=== PATIENT | male | born 1980 | race Caucasian/White ===

== ENCOUNTER 2020-09-26 15:36 | Inpatient (IN) | payer MEDICAID, OTHER ==
[~2020-09-26] VITALS: Ht 175.3 cm; Wt 77.4 kg
[2020-09-26] MEDS ORDERED: LORazepam 2 MG/ML, 1ML IVPush ONE ×3 (16:00→17:00)
[2020-09-26] MEDS ORDERED: SODIUM CHLORIDE 0.9% 1,000ML IVBOLUS ONE (16:00)
[2020-09-26] MEDS ORDERED: LORazepam 2 MG/ML, 1ML ONE ×5 (16:01→21:01)
[2020-09-26 16:26] LABS: BASOPHILS % (AUTO) 0 % (0-1); EOSINOPHILS % (AUTO) 0 % (1-7); LYMPHOCYTES % (AUTO) 4 % (22-44); MEAN CORPUSCULAR HEMOGLOBIN 36.1 pg (27.5-34.5); MEAN CORPUSCULAR HGB CONC 34.7 g/dL (33.2-36.2); MEAN PLATELET VOLUME 8.4 fL (7.4-10.4); MONOCYTES % (AUTO) 17 % (2-9); NEUTROPHILS % (AUTO) 79 % (42-75); PLATELET COUNT 174 x10^3/uL (130-400); RED BLOOD COUNT 3.24 x10^6/uL (4.38-5.82); RED CELL DISTRIBUTION WIDTH 12.5 % (9.4-14.8)
--- NOTE | 2020-09-26 16:45 | NUR ---
FOUND PT OUT OF BED, PIV REMOVED BY PT, BLOOD ALL OVER. PT PLACED BACK INTO BED.MONITOR'S PLACED AND ROOM CLEANED. CHARGE, RN NOTIFIED. PROVIDER UPDATED. MED ORDERS RECEIVED.
--- NOTE | 2020-09-26 16:58 | NUR ---
SITTER AT BEDSIDE. PT MEDICATED PER OCT.
[2020-09-26 17:12] LABS: ALANINE AMINOTRANSFERASE 193 U/L (12-78); ALBUMIN 4.2 g/dL (3.4-5.0); ANION GAP 25 mmol/L (5-15); CALCIUM 8.2 mg/dL (8.5-10.1); CHLORIDE 93 mmol/L (98-107); CREATININE 2.99 mg/dL (0.7-1.3)
[2020-09-26 17:14] LABS: ALKALINE PHOSPHATASE 80 U/L (45-117); BILIRUBIN,TOTAL 2.1 mg/dL (0.2-1.0); TOTAL PROTEIN 8.3 g/dL (6.4-8.2)
[2020-09-26 17:31] LABS: MD SCAN
[2020-09-26 17:49] LABS: AMPHETAMINE SCREEN, URINE Negative (Negative); BARBITURATE SCREEN, URINE Negative (Negative); BENZODIAZEPINE SCREEN, URINE Negative (Negative); CANNABINOID SCREEN, URINE Negative (Negative); COCAINE SCREEN, URINE Negative (Negative); METHADONE SCREEN, URINE Negative (Negative); OPIATE SCREEN, URINE Negative (Negative)
--- NOTE | 2020-09-26 17:52 | NUR ---
PT SLEEPING, SHIVANI BOO.
--- NOTE | 2020-09-26 17:54 | NUR ---
PT AWAKE AGAIN AND PULLING AT LINES. MEDICATED PER OCT.
[2020-09-26] MEDS: LORazepam 2 MG/ML, 1ML IVPush PRN ×4 (17:55→20:00)
[2020-09-26] MEDS ORDERED: PLEASE ENTER ALLERGIES MC SCH (18:00)
[2020-09-26] MEDS ORDERED: SODIUM CHLORIDE 0.9% 1,000 ML IV ONE (18:00)
[2020-09-26] MEDS ORDERED: ONDANSETRON 2MG/ML, 2ML IVPush ONE (18:00)
[2020-09-26] MEDS ORDERED: MAGNESIUM SULFATE 1 GM, THIAMINE 100 MG, FOLIC ACID 1 MG in SODIUM CHLORIDE 0.9% 1,000 ML IV ONE (18:00)
[2020-09-26] MEDS ORDERED: ONDANSETRON 2MG/ML, 2ML ONE (18:06)
[2020-09-26 18:24] LABS: SALICYLATE LEVEL 5.2 mg/dL (2.8-20.0)
[2020-09-26 18:37] LABS: INTERNATIONAL NORMALIZED RATIO 0.99 (0.93-1.1); PROTHROMBIN TIME 10.6 Seconds (9.6-11.5)
[2020-09-26] MEDS ORDERED: LACTATED RINGERS 1,000 ML IV SCH (20:30)
[2020-09-26] MEDS ORDERED: PHARMACY MAY ADJ FOR RENAL FX MC PRN (20:30)
[2020-09-26] MEDS: DIAZEPAM 10 MG TABLET PO SCH ×3 (20:30→23:30)
[2020-09-26] MEDS ORDERED: ACETAMINOPHEN 325 MG TABLET PO PRN (20:30)
[2020-09-26] MEDS ORDERED: ACETAMINOPHEN 650 MG SUPP PR PRN (20:30)
[2020-09-26] MEDS ORDERED: LORazepam 2 MG/ML, 1ML IV PRN ×3 (20:30)
[2020-09-26] MEDS ORDERED: LABETALOL 5MG/ML, 20ML IVPush PRN (21:00)
[2020-09-26] MEDS ORDERED: SODIUM CHLORIDE 0.9%, 500ML IVBOLUS ONE (21:00)
[2020-09-26] MEDS ORDERED: MAGNESIUM CHLORIDE 64 MG TABLET.DR PO SCH (21:00)
[2020-09-26] MEDS ORDERED: SODIUM CHLORIDE 0.9% 1,000 ML IV SCH (21:00)
[2020-09-26] MEDS: LORazepam 2 MG/ML, 1ML IV PRN ×2 (21:10→22:31)
--- NOTE | 2020-09-26 21:11 | NUR ---
REPORT FROM KRISTA CLEMENT. PT VERY AGITATED, TREMORS NOTED, PT URINATED ON GURNEY AND FLOOR. MONITORING REPLACED, PT AND GURNEY CLEANED, MEDICATED PER EMAR.
[2020-09-26] MEDS: HEPARIN 5,000 UNITS/ML, 1ML SQ SCH (22:31)
[2020-09-27] MEDS: LORazepam 2 MG/ML, 1ML IV PRN ×4 (00:07→04:40)
[2020-09-27] MEDS: DIAZEPAM 10 MG TABLET PO SCH ×3 (00:11→03:44)
[2020-09-27 00:57] LABS: ANION GAP 14 mmol/L (5-15); CALCIUM 8.4 mg/dL (8.5-10.1); CHLORIDE 106 mmol/L (98-107); CREATININE 2.03 mg/dL (0.7-1.3)
[2020-09-27] MEDS ORDERED: CALCIUM GLUCONATE 4.6 MEQ in SODIUM CHLORIDE 0.9% 50 ML IV ONE (04:00)
[2020-09-27] MEDS ORDERED: SODIUM ZIRCONIUM CYCLOSILICATE 10 GM PO ONE ×2 (04:00→09:00)
[2020-09-27] MEDS ORDERED: D5%-0.45% NACL 1,000 ML IV SCH (04:00)
[2020-09-27] MEDS: HEPARIN 5,000 UNITS/ML, 1ML SQ SCH ×3 (04:40→21:53)
[2020-09-27 04:47] LABS: BASOPHILS % (AUTO) 0 % (0-1); EOSINOPHILS % (AUTO) 0 % (1-7); LYMPHOCYTES % (AUTO) 13 % (22-44); MEAN CORPUSCULAR HEMOGLOBIN 36.6 pg (27.5-34.5); MEAN PLATELET VOLUME 8.1 fL (7.4-10.4); MONOCYTES % (AUTO) 21 % (2-9); NEUTROPHILS % (AUTO) 65 % (42-75); PLATELET COUNT 144 x10^3/uL (130-400); RED BLOOD COUNT 2.89 x10^6/uL (4.38-5.82); RED CELL DISTRIBUTION WIDTH 12.2 % (9.4-14.8)
[2020-09-27 04:54] LABS: ANION GAP 15 mmol/L (5-15); CALCIUM 7.8 mg/dL (8.5-10.1); CHLORIDE 106 mmol/L (98-107); CREATININE 1.57 mg/dL (0.7-1.3)
[2020-09-27 05:01] LABS: ALBUMIN 3.4 g/dL (3.4-5.0); BILIRUBIN, DIRECT 0.6 mg/dL (0.1-0.2)
[2020-09-27 05:03] LABS: BILIRUBIN,INDIRECT 1.2 mg/dL (0.0-2.0); BILIRUBIN,TOTAL 1.8 mg/dL (0.2-1.0); TOTAL PROTEIN 6.6 g/dL (6.4-8.2)
[2020-09-27 05:32] LABS: MD SCAN
[2020-09-27] MEDS ORDERED: LORazepam 2 MG/ML, 1ML IVPush PRN (07:00)
[2020-09-27] MEDS: MAGNESIUM SULFATE IV SCH (07:48)
[2020-09-27] MEDS: FOLIC ACID IV SCH (07:48)
[2020-09-27] MEDS: THIAMINE IV SCH (07:48)
[2020-09-27] MEDS: D5 IV SCH (07:48)
[2020-09-27] MEDS: NACL IV SCH (07:48)
[2020-09-27 08:09] LABS: MICROSCOPIC AUTO
[2020-09-27] MEDS: MULTIVITAMINS/MINERALS TABLET PO SCH (09:00)
[2020-09-27] MEDS ORDERED: CHLORDIAZEPOXIDE 25 MG CAPSULE ONE (12:53)
[2020-09-27] MEDS: CHLORDIAZEPOXIDE 25 MG CAPSULE PO SCH ×2 (12:57→19:56)
[2020-09-27 14:34] VITALS: BP 123/78
[2020-09-27] MEDS: D5%-0.45% NACL 1,000 ML IV SCH ×2 (16:40→23:53)
[2020-09-27 21:49] VITALS: BP 124/75
[2020-09-27] MEDS ORDERED: DIAZEPAM 10 MG TABLET PO SCH (23:30)
[2020-09-28 00:36] VITALS: BP 138/90
[2020-09-28] MEDS: CHLORDIAZEPOXIDE 25 MG CAPSULE PO SCH ×3 (02:04→14:00)
[2020-09-28] MEDS ORDERED: D5%-0.45% NACL 1,000 ML IV SCH ×2 (04:00→16:00)
[2020-09-28] MEDS: HEPARIN 5,000 UNITS/ML, 1ML SQ SCH ×2 (05:24→13:08)
[2020-09-28] MEDS: D5%-0.45% NACL 1,000 ML IV SCH (05:43)
[2020-09-28 05:59] LABS: BASOPHILS % (AUTO) 1 % (0-1); EOSINOPHILS % (AUTO) 1 % (1-7); LYMPHOCYTES % (AUTO) 23 % (22-44); MEAN CORPUSCULAR HEMOGLOBIN 36.6 pg (27.5-34.5); MEAN CORPUSCULAR HGB CONC 35.6 g/dL (33.2-36.2); MEAN PLATELET VOLUME 7.9 fL (7.4-10.4); MONOCYTES % (AUTO) 22 % (2-9); NEUTROPHILS % (AUTO) 54 % (42-75); PLATELET COUNT 156 x10^3/uL (130-400); RED BLOOD COUNT 2.83 x10^6/uL (4.38-5.82); RED CELL DISTRIBUTION WIDTH 12.3 % (9.4-14.8)
[2020-09-28 06:10] LABS: CHLORIDE 107 mmol/L (98-107)
[2020-09-28 06:11] LABS: MD NO
[2020-09-28 06:32] LABS: ALANINE AMINOTRANSFERASE 111 U/L (12-78); ALKALINE PHOSPHATASE 57 U/L (45-117); ANION GAP 6 mmol/L (5-15); BILIRUBIN,TOTAL 1.1 mg/dL (0.2-1.0); CALCIUM 8.2 mg/dL (8.5-10.1); CREATINE KINASE, TOTAL 3349 U/L (39-308); CREATININE 0.94 mg/dL (0.7-1.3); TOTAL PROTEIN 6.1 g/dL (6.4-8.2)
[2020-09-28 06:44] VITALS: BP 144/91
[2020-09-28] MEDS: MAGNESIUM SULFATE IV SCH (07:52)
[2020-09-28] MEDS: FOLIC ACID IV SCH (07:52)
[2020-09-28] MEDS: D5 IV SCH (07:52)
[2020-09-28] MEDS: THIAMINE IV SCH (07:52)
[2020-09-28] MEDS: NACL IV SCH (07:52)
[2020-09-28] MEDS: MULTIVITAMINS/MINERALS TABLET PO SCH (07:53)
[2020-09-28] MEDS ORDERED: THIAMINE 100 MG in DEXTROSE 5% 50 ML IVPB SCH (09:00)
[2020-09-28] MEDS ORDERED: POTASSIUM CHLORIDE 20 MEQ TAB.ER.PRT PO ONE (10:30)
[2020-09-28 12:39] VITALS: BP 121/69
== END 2020-09-28 15:02 | disposition left against medical advice (07) | DRG 70 ==
LOC: ED 18:27 → EDIP 18:34 → ED 19:18 → CCU 21:27 → 3N 09-27 14:08
PROVIDERS: ADMIT Family Medicine; ATTEND Internal Medicine
DX: G93.41 Metabolic encephalopathy (principal); N17.0 Acute kidney failure with tubular necrosis; E87.1 Hypo-osmolality and hyponatremia; E87.2 Acidosis; F10.231 Alcohol dependence with withdrawal delirium; M62.82 Rhabdomyolysis; K70.10 Alcoholic hepatitis without ascites; D53.9 Nutritional anemia, unspecified; E16.2 Hypoglycemia, unspecified; E86.0 Dehydration; E86.1 Hypovolemia; F17.200 Nicotine dependence, unspecified, uncomplicated; R74.01 Elevation of levels of liver transaminase levels; E87.5 Hyperkalemia
CPT/HCPCS: 36415; J7042; 71045; 80048; 80053; 80074; 80076; 80299; 80307; 80320; 80329; 81001; 82140; 82550; 83690; 83735; 84100; 85025; 85610; 85730; 87081; 93005; G0378; J0610; J1644; J2405; J3411; J3475; G0480; J2060; J7030

== ENCOUNTER 2020-09-28 16:52 | Emergency (ER) | payer SELFPAY ==
[~2020-09-28] VITALS: Ht 180.3 cm; Wt 81.6 kg
--- NOTE | 2020-09-28 17:26 | NUR ---
PT IS A 39M WHO COMES IN THIS AFTERNOON COMPLAINING OF PAIN TO LEFT HAND AND LEFT FOOT. HE STATES IT IS A GOUT FLARE UP. HE IS ALSO DETOXING FROM ETOH. LAST DRINK WAS 4-5 DAYS AGO. PT LEFT THE ICU AMA THIS AFTERNOON BUT STATES HE DID NOT HAVE A DRINK BEFORE COMING BACK. PT IS TREMULOUS BUT RESTING IN BED WITH A WARM BLANKET. CALL LIGHT WITHIN REACH, CONTINUOUS SPO2 AND CYCLING VITALS IN PLACE.
--- NOTE | 2020-09-28 17:55 | NUR ---
PROVIDER AT BEDSIDE FOR EVALUATION.
[2020-09-28] MEDS ORDERED: POTASSIUM CHLORIDE 20 MEQ, MAGNESIUM SULFATE 1 GM, FOLIC ACID 1 MG, THIAMINE 200 MG in ... IV SCH (18:00)
[2020-09-28] MEDS ORDERED: LORazepam 2 MG/ML, 1ML IVPush ONE (18:00)
[2020-09-28] MEDS ORDERED: LORazepam 2 MG/ML, 1ML ONE (18:18)
[2020-09-28 18:29] LABS: ALANINE AMINOTRANSFERASE 112 U/L (12-78); ALBUMIN 3.3 g/dL (3.4-5.0); ANION GAP 5 mmol/L (5-15); CALCIUM 8.3 mg/dL (8.5-10.1); CHLORIDE 106 mmol/L (98-107); CREATININE 0.86 mg/dL (0.7-1.3)
--- NOTE | 2020-09-28 18:29 | NUR ---
PT RESTING COMFORTABLY WITH CALL LIGHT IN REACH. MEDICATED PER EMAR AND ORDERED ADDITIONAL MEDS FROM PHARMACY
[2020-09-28] MEDS ORDERED: MULTIVITAMIN 1 TABLET PO ONE (18:30)
[2020-09-28 18:35] LABS: BASOPHILS % (AUTO) 1 % (0-1); EOSINOPHILS % (AUTO) 0 % (1-7); LYMPHOCYTES % (AUTO) 15 % (22-44); MEAN CORPUSCULAR HEMOGLOBIN 36.2 pg (27.5-34.5); MEAN CORPUSCULAR HGB CONC 35.5 g/dL (33.2-36.2); MEAN PLATELET VOLUME 8.1 fL (7.4-10.4); MONOCYTES % (AUTO) 26 % (2-9); NEUTROPHILS % (AUTO) 59 % (42-75); PLATELET COUNT 176 x10^3/uL (130-400); RED BLOOD COUNT 2.94 x10^6/uL (4.38-5.82); RED CELL DISTRIBUTION WIDTH 11.9 % (9.4-14.8)
[2020-09-28 18:36] LABS: MD NO
[2020-09-28 18:43] LABS: ALKALINE PHOSPHATASE 62 U/L (45-117); BILIRUBIN,TOTAL 0.9 mg/dL (0.2-1.0); CREATINE KINASE, TOTAL 2191 U/L (39-308); TOTAL PROTEIN 6.7 g/dL (6.4-8.2)
--- NOTE | 2020-09-28 18:51 | NUR ---
REPORT TO GUSTABO VELASCO
--- NOTE | 2020-09-28 18:58 | NUR ---
BEDSIDE REPORT FROM MICHELLE RN, PT CARE TRANSFERRED AT THIS TIME. NAD, RESTING ON GURNEY, EYES CLOSED, PT IS HAVING A SLIGHTLY INCREASE OF ACTIVITY AND FIDGETING. OTHERWISE APPEARS COMFORTABLE, BED IN LOWEST, RAILS ENGAGED, CALL LIGHT ON LAP, WAITING FOR MED FROM PHARMACY AND LAB RESULTS, WCTM.
[2020-09-28] MEDS ORDERED: AMPICILLIN/SULBACTAM 3 GM in SODIUM CHLORIDE 0.9% 100 ML IV ONE (19:00)
--- NOTE | 2020-09-28 20:00 | NUR ---
LATE ENTRY D/T PT CARE: PT PROVIDED SANDWICH AND CHIPS AND ADDITIONAL WARM BLANKETS FOR COMFORT, DENIES ADDITIONAL NEEDS AT THIS TIME. NAD, BED IN LOWEST, RAILS ENGAGED, CALL LIGHT ON LAP, WCTM. WAITING FOR FLUIDS TO FINISH.
--- NOTE | 2020-09-28 20:55 | NUR ---
PT RESTING ON GURNEY, UNDER BLANKETS, APPEARS COMFORTABLE, NAD, NO LONGER RESTLESS, BED IN LOWEST, RAILS ENGAGED, CALL LIGHT ON LAP, WCTM. WAITING FOR FLUIDS TO FINISH.
--- NOTE | 2020-09-28 21:49 | NUR ---
PT RESTING ON CARMEN, ESTABLISHED WHERE HE WANTS TO DC TO WITH TAXI VOUCHER, NO CHANGE IN CONDITION, NAD, DISCUSSED IN PATIENT REHAB OPTIONS WITH PT, PT DECLINES WELLCARE AT THIS TIME STATING "I FEEL BETTER, I JUST NEEDED A QUICK BREAK." WCTM. WAITING FOR ELECTROLYTE BAG TO BE COMPLETED.
--- NOTE | 2020-09-28 21:53 | NUR ---
PT STATES "I LEFT MY STUFF WITH SOMEONE, LIKE MY KEYS, WALLET AND PHONE BUT WHEN I LEFT E[facility] TODAY I DIDNT GET IT BACK." THIS RN CONTACTED SECURITY WHO DECLINED HAVING ITEMS. PER E[facility] CHARTING IN EMR RECORDS, PT LEFT WITH ALL PERSONAL BELONGINGS. WCTM.
[2020-09-28 23:08] VITALS: BP 129/88
--- NOTE | 2020-09-28 23:11 | NUR ---
Patient given discharge instructions and they have confirmed that they understand the instructions. Patient ambulatory with steady gait. nad, denies additional questions or needs at this time. no personal belongings left in room after discharge. pt provided taxi voucher.
--- NOTE | 2020-09-28 23:49 | NUR ---
AFTER DC, PT SET BAG OF URINE SOAKED CLOTHING DOWN AND LEFT IN ROOM, DECLINES TAKING BELONGINGS.
== END 2020-09-28 23:10 | disposition home or self-care (01) ==
LOC: ED 19:25
DX: F10.139 Alcohol abuse with withdrawal, unspecified (principal); L03.032 Cellulitis of left toe; R41.0 Disorientation, unspecified; Y90.0 Blood alcohol level of less than 20 mg/100 ml
CPT/HCPCS: 36415; 73140; 73660; 80053; 80320; 82550; 84550; 85025; 96365; 96366; 96368; 96375; 99285; J0295; J2060; J3411; J3475; J3480; J7042; 96361; 96374; G0480

== ENCOUNTER 2020-10-16 16:45 | Emergency (ER) | payer MEDICAID ==
[~2020-10-16] VITALS: Ht 180.3 cm; Wt 84.1 kg
--- NOTE | 2020-10-16 18:17 | NUR ---
CLEAN RICE BROKER: PT AMBULATORY TO ROOM FROM LOBBY
[2020-10-16 18:41] VITALS: BP 132/72
--- NOTE | 2020-10-16 18:42 | NUR ---
REFUSED BOOT AND CRUTCHES. STATES HE FEELS BETTER WALKING IN HIS SHOES. VSS.
== END 2020-10-16 18:44 | disposition home or self-care (01) ==
LOC: ED 17:30
DX: S93.602A Unspecified sprain of left foot, initial encounter (principal); S96.912A Strain of unspecified muscle and tendon at ankle and foot level, left foot, initial encounter; X58.XXXA Exposure to other specified factors, initial encounter; Y93.89 Activity, other specified; Y92.89 Other specified places as the place of occurrence of the external cause; Y99.8 Other external cause status
CPT/HCPCS: 99283